=== PATIENT | female | born 1995 | race Caucasian/White ===

== ENCOUNTER 2017-02-02 17:03 | Emergency (ER) | payer SELFPAY ==
[2017-02-02] MEDS ORDERED: NS 0.9% 1000 ML* 1,000 ML IV ONE (17:12)
[2017-02-02] MEDS ORDERED: Ondansetron ODT TAB* 4 MG PO ONE (17:12)
[2017-02-02 17:37] LABS: Hematocrit 42 % (35-47); Hemoglobin 14.1 g/dl (12.0-16.0); Mean Corpuscular HGB Conc 34 g/dl (31-36); Mean Corpuscular Hemoglobin 31 pg (27-31); Mean Corpuscular Volume 92 fL (80-97); Mean Platelet Volume 8 um3 (7.4-10.4); Red Blood Count 4.54 10^6/ul (4.0-5.4); Red Cell Distribution Width 12 % (10.5-15); White Blood Count 5.3 10^3/ul (3.5-10.8)
[2017-02-02 17:54] LABS: ALT 20 U/L (7-52); Albumin 4.9 g/dL (3.2-5.2); Alkaline Phosphatase 61 U/L (34-104); BUN/Creatinine Ratio 14.3 (8-20); Blood Urea Nitrogen 12 mg/dL (6-24); CO2 Carbon Dioxide 18 mmol/L (22-32); Calcium 9.4 mg/dL (8.6-10.3); Chloride 102 mmol/L (101-111); EGFR African American 112.3 (>60); EGFR Non-African American 87.3 (>60); Globulin 3.3 g/dL (2-4); Glucose 103 mg/dL (70-100); Sodium 133 mmol/L (133-145); Total Protein 8.2 g/dL (6.4-8.9)
[2017-02-02 18:37] LABS: Urine Bilirubin Negative (Negative); Urine Glucose Negative (Negative); Urine Nitrite Negative (Negative)
[2017-02-02 18:40] LABS: Anion Gap 13 mmol/L (2-11)
[2017-02-02 19:01] LABS: Benzodiazepine Urine Screen None Detected (None Detect)
[2017-02-02 20:41] VITALS: BP 118/73
--- NOTE | 2017-02-03 08:41 | ED ---
Cristiano Mar Nikita, scribed for Frank Paul MD on 02/02/17 at 1718 . Substance Abuse/Use - HPI Summary HPI Summary: This patient is a 21 year old F BIBA to ED with a chief complaint of alcohol intoxication since 1100 at homecoming at [place]. The pt had 4-5 glasses of wine. The patient rates the pain 0/10 in severity. Symptoms aggravated by nothing. Symptoms alleviated by nothing. Patient reports vomited (2x). Pt denies using drugs or smoking while drinking. - History Of Current Complaint Stated Complaint: ETOH Time Seen by Provider: 02/02/17 17:06 Hx Obtained From: Patient Onset/Duration of Drug/ETOH Abuse: Hours Ingestion History: Type/Name Of Drug - Wine, Amount Ingested - 4-5 glasses Aggravating Factor(s): Nothing Alleviating Factor(s): Nothing Associated Signs And Symptoms: Other: - Patient reports vomited (2x). - Allergies/Home Medications Allergies/Adverse Reactions: Allergies Allergy/AdvReac Type Severity Reaction Status Date / Time No Known Allergies Allergy Verified 02/02/17 17:10 PMH/Surg Hx/FS Hx/Imm Hx Endocrine/Hematology History: Denies: Hx Diabetes Cardiovascular History: Denies: Hx Coronary Artery Disease, Hx Hypertension Respiratory History: Reports: Other Respiratory Problems/Disorders - pleurisy Infectious Disease History: No Infectious Disease History: Reports: Traveled Outside the [place] in Last 30 Days - Family History Known Family History: Positive: Diabetes, Other Negative: Cardiac Disease, Hypertension Family History: CA - Social History Alcohol Use: Occasionally Hx Substance Use: No Hx Tobacco Use: No Review of Systems Negative: Fever Positive: Vomiting All Other Systems Reviewed And Are Negative: Yes Physical Exam - Summary Physical Exam Summary: GENERAL: ~Patient is a well-developed and nourished FEMALE who is lying comfortable in the stretcher. ~Patient is not in any acute respiratory distress. Drunk. HEAD AND FACE: No signs of trauma. ~No ecchymosis, hematomas or skull depressions. No sinus tenderness. EYES: PERRLA, EOMI x 2, No injected conjunctiva, no nystagmus. EARS: Hearing grossly intact. Ear canals and tympanic membranes are within normal limits. MOUTH: Oropharynx within normal limits. Alcohol in the breath. NECK: Supple, trachea is midline, no adenopathy, no JVD, no carotid bruit, no c- spine tenderness, neck with full ROM. CHEST: Symmetric, no tenderness at palpation LUNGS: Clear to auscultation bilaterally. No wheezing or crackles. CVS: Regular rate and rhythm, S1 and S2 present, no murmurs or gallops appreciated. ABDOMEN: Soft, non-tender. No signs of distention. No rebound no guarding, and no masses palpated. Bowel sounds are normal. EXTREMITIES: FROM in all major joints, no edema, no cyanosis or clubbing. NEURO: Alert and oriented x 3. No acute neurological deficits. Speech is normal and follows commands. SKIN: Dry and warm Triage Information Reviewed: Yes Vital Signs On Initial Exam: Initial Vitals Temp Pulse Resp BP Pulse Ox 97.6 F 95 16 115/66 100 02/02/17 17:05 02/02/17 17:05 02/02/17 17:05 02/02/17 17:05 02/02/17 17:05 Vital Signs Reviewed: Yes Diagnostics - Vital Signs Vital Signs Temp Pulse Resp BP Pulse Ox 02/02/17 17:05 97.6 F 95 16 115/66 100 - Laboratory Lab Results: Lab Results 02/02/17 02/02/17 Range/Units 17:25 17:25 WBC 5.3 (3.5-10.8) 10^3/ul RBC 4.54 (4.0-5.4) 10^6/ul Hgb 14.1 (12.0-16.0) g/dl Hct 42 (35-47) % MCV 92 (80-97) fL MCH 31 (27-31) pg MCHC 34 (31-36) g/dl RDW 12 (10.5-15) % Plt Count 320 (150-450) 10^3/ul MPV 8 (7.4-10.4) um3 Neut % (Auto) 67.8 (38-83) % Lymph % (Auto) 23.7 L (25-47) % [place]aine % (Auto) 5.7 (1-9) % Eos % (Auto) 0.8 (0-6) % Baso % (Auto) 2.0 (0-2) % Absolute Neuts (auto) 3.6 (1.5-7.7) 10^3/ul Absolute Lymphs (auto) 1.2 (1.0-4.8) 10^3/ul Absolute Monos (auto) 0.3 (0-0.8) 10^3/ul Absolute Eos (auto) 0 (0-0.6) 10^3/ul Absolute Basos (auto) 0.1 (0-0.2) 10^3/ul Absolute Nucleated RBC 0 10^3/ul Nucleated RBC % 0 Sodium 133 (133-145) mmol/L Potassium Pending Chloride 102 (101-111) mmol/L Carbon Dioxide 18 L (22-32) mmol/L Anion Gap Pending BUN 12 (6-24) mg/dL Creatinine 0.84 (0.51-0.95) mg/dL Est GFR ( Amer) 112.3 (>60) Est GFR (Non-Af Amer) 87.3 (>60) BUN/Creatinine Ratio 14.3 (8-20) Glucose 103 H (70-100) mg/dL Calcium 9.4 (8.6-10.3) mg/dL Total Bilirubin 0.30 (0.2-1.0) mg/dL AST Pending ALT 20 (7-52) U/L Alkaline Phosphatase 61 (34-104) U/L Total Protein 8.2 (6.4-8.9) g/dL Albumin 4.9 (3.2-5.2) g/dL Globulin 3.3 (2-4) g/dL Albumin/Globulin Ratio 1.5 (1-3) Beta HCG, Quant < 0.60 mIU/mL Result Diagrams: 02/02/17 17:25 02/02/17 17:25 Lab Statement: Any lab studies that have been ordered have been reviewed, and results considered in the medical decision making process. Course/Dx - Course Assessment/Plan: This patient is a 21 year old F BIBA to ED with a chief complaint of alcohol intoxication since 1100 at homecoming at [place]. The pt had 4-5 glasses of wine. The patient rates the pain 0/10 in severity. Symptoms aggravated by nothing. Symptoms alleviated by nothing. Patient reports vomited ( 2x). Pt denies using drugs or smoking while drinking. In the ED course an IV access was obtained. Patient was placed in a case monitor. Patient was started with IV fluids and Zofran for nausea and vomiting. Labs without any significant abnormality except for Glucose of 103, AG 14. After Zofran nausea and vomiting improved. Patient still awaiting for alcohol level and urine tox. Patient is hemodynamically stable. Patient is sleeping confortable. No signs of trauma. No CT ordered. Patient will be signed out to Dr. Szymanski to observe patient until she becomes sober and A+OX3 - Diagnoses Differential Diagnosis/HQI/PQRI: Positive: Alcohol Abuse, Alcohol Withdrawal, Anxiety, Drug Abuse Provider Diagnoses: Alcohol intoxication Discharge - Discharge Plan Condition: Stable Disposition: HOME Patient Education Materials: Alcohol Intoxication (ED) Referrals: [facility] [Outside] - 3 Days The documentation as recorded by the Cristiano montenegro Nikita accurately reflects the service I personally performed and the decisions made by , Frank Paul MD.
== END 2017-02-02 20:20 | disposition home or self-care (01) ==
LOC: ED 17:03
DX: F10.129 Alcohol abuse with intoxication, unspecified (principal); Y90.6 Blood alcohol level of 120-199 mg/100 ml; R11.10 Vomiting, unspecified; Z04.8 Encounter for examination and observation for other specified reasons; Z32.02 Encounter for pregnancy test, result negative
CPT/HCPCS: 36415; 80053; 80307; 80320; 81003; 84702; 85025; 96360; 99282; A9270-GY; G0480